=== PATIENT | male | born 1960 | race Caucasian/White ===

== ENCOUNTER → 2017-11-30 | Outpatient (CLI) | payer MEDICARE, MEDICAID | LOC: COL.RAD 12:09 | DX: M50.11 Cervical disc disorder with radiculopathy, high cervical region (principal); M48.02 Spinal stenosis, cervical region; G95.89 Other specified diseases of spinal cord; Z98.1 Arthrodesis status; Z96.9 Presence of functional implant, unspecified | CPT/HCPCS: A9585 ==

== ENCOUNTER → 2018-02-12 | Outpatient (CLI) | payer MEDICARE, MEDICAID | LOC: COL.RAD 14:36 | DX: M99.73 Connective tissue and disc stenosis of intervertebral foramina of lumbar region (principal); M51.17 Intervertebral disc disorders with radiculopathy, lumbosacral region ==

== ENCOUNTER → 2018-03-29 | Outpatient (CLI) | payer MEDICARE, MEDICAID | LOC: ZCOL.LAB 13:20 | DX: Z01.89 Encounter for other specified special examinations (principal) ==

== ENCOUNTER → 2019-03-26 | Outpatient (CLI) | payer MEDICARE, MEDICAID | LOC: ZCOL.LAB 13:56 | DX: Z01.89 Encounter for other specified special examinations (principal) ==